=== PATIENT | female | born 1950 | race Caucasian/White ===

== ENCOUNTER 2019-04-18 11:55 | Outpatient (CLI) | payer MEDICARE, OTHER | END 2019-04-18 23:59 | disposition home or self-care (01) | LOC: CFH 11:55 | PROVIDERS: ATTEND Internal Medicine Geriatric Medicine | DX: N64.4 Mastodynia (principal); Z85.3 Personal history of malignant neoplasm of breast | CPT/HCPCS: 76641 ==

== ENCOUNTER 2020-05-07 10:58 | Outpatient (CLI) | payer MEDICARE, OTHER | END 2020-05-07 23:59 | disposition home or self-care (01) | LOC: CFH 10:58 | PROVIDERS: ATTEND Radiology Diagnostic Radiology | DX: Z12.31 Encounter for screening mammogram for malignant neoplasm of breast (principal); Z85.3 Personal history of malignant neoplasm of breast | CPT/HCPCS: 77063; 77067 ==

== ENCOUNTER 2020-06-05 13:52 | Outpatient (CLI) | payer MEDICARE, OTHER | END 2020-06-05 23:59 | disposition home or self-care (01) | LOC: CFH 13:52 | PROVIDERS: ATTEND Radiology Diagnostic Radiology | DX: Z85.3 Personal history of malignant neoplasm of breast (principal) | CPT/HCPCS: 76641 ==

== ENCOUNTER → 2020-07-10 | Outpatient (CLI) | payer MEDICARE, OTHER | END | disposition home or self-care (01) | LOC: CFH 07:13 | PROVIDERS: ATTEND Internal Medicine Hematology & Oncology | DX: C50.412 Malignant neoplasm of upper-outer quadrant of left female breast (principal) | CPT/HCPCS: 76642 ==